=== PATIENT | female | born 1980 | race Two or more races ===

== ENCOUNTER 2017-12-14 19:26 | Inpatient (IN) | payer MEDICAID, OTHER ==
[~2017-12-14] VITALS: Ht 170.2 cm; Wt 75.2 kg
[2017-12-14] MEDS ORDERED: ACETAMINOPHEN 325 MG TAB PO ONE ×2 (20:03→20:45)
[2017-12-14 21:11] LABS: Urine Amorphous Crystal FEW /hpf (None Seen); Urine Bacteria NONE SEEN /hpf (None Seen); Urine Blood 1+ /uL (Negative); Urine Specific Gravity 1.006 (1.001-1.035); Urine WBC 7 /hpf (0 - 5)
[2017-12-14 21:26] LABS: Basophils # (auto) 0 uL; Basophils % (auto) 0.6 % (0.0-2.0); Eosinophils # (auto) 0 uL; Eosinophils % (auto) 0.2 % (0.0-7.0); Hemoglobin 13.1 g/dL (12.2-16.2); Lymphocytes # (auto) 1.4 uL; Lymphocytes % (auto) 19.7 % (10.0-50.0); Mean Corpuscular Hemoglobin 30.7 pg (28.0-32.0); Mean Corpuscular Hgb Conc. 34.4 g/dL (32.0-36.0); Mean Corpuscular Volume 89.3 fL (80.0-100.0); Monocytes # (auto) 0.6 uL; Monocytes % (auto) 9.1 % (0.0-12.0); Neutrophils # (auto) 4.9 uL; Neutrophils % (auto) 70.4 % (37.0-80.0); Platelet Count (auto) 210 10^3/uL (140-450); Red Blood Cells 4.26 10^6/uL (4.0-5.20); Red Cell Distribution Width 12.6 % (11.8-14.3)
[2017-12-14 21:47] LABS: BUN/Creatinine Ratio 9.2; Bilirubin, Total 0.5 mg/dL (0.2-1.0); Calcium 8.2 mg/dL (8.5-10.1); Magnesium 2.4 mg/dL (1.6-2.6); Potassium 3.5 mmol/L (3.5-5.1); Total Protein 7.9 g/dL (6.4-8.2)
[2017-12-14] MEDS ORDERED: SODIUM CHLORIDE 0.9% 1,000 ML IV ONE (22:15)
[2017-12-14] MEDS ORDERED: PIPERACILLIN-TAZOB 3.375GM 100 ML IV ONE (22:15)
[2017-12-14] MEDS ORDERED: LEVOFLOXACIN 750MG 150 ML IV ONE (22:30)
[2017-12-15] VITALS (8 sets, daily range): BP systolic 96–113; BP diastolic 55–73
[2017-12-15] MEDS ORDERED: HYDROmorphone HCL 2 MG/ML VL IV PRN (02:00)
[2017-12-15] MEDS ORDERED: ONDANSETRON HCL 4 MG/2 ML VIAL IV PRN (02:00)
[2017-12-15] MEDS ORDERED: HYDROcodone-ACET 5/325MG TAB PO PRN (02:00)
[2017-12-15] MEDS ORDERED: ALBUTEROL SULF 2.5 MG/0.5ML(0.5%) NEB SOLN NEB PRN (02:15)
[2017-12-15] MEDS: SODIUM CHLORIDE 0.9% 1,000 ML IV SCH ×4 (04:14→21:18)
[2017-12-15] MEDS: ACETAMINOPHEN 500 MG TAB PO PRN ×2 (06:25→14:03)
[2017-12-15] MEDS: PANTOPRAZOLE 40 MG/10 ML VIAL IV SCH (10:08)
[2017-12-15 13:14] LABS: Amylase 59 U/L (25-115); Lipase 228 U/L (73-393)
[2017-12-15] MEDS ORDERED: LEVOFLOXACIN 500MG 100 ML IV SCH (23:00)
[2017-12-16 05:16] VITALS: BP 103/60
[2017-12-16] MEDS: ACETAMINOPHEN 500 MG TAB PO PRN (05:56)
[2017-12-16 06:07] LABS: Basophils # (auto) 0 uL; Basophils % (auto) 0.4 % (0.0-2.0); Eosinophils # (auto) 0 uL; Eosinophils % (auto) 0.8 % (0.0-7.0); Hemoglobin 11.4 g/dL (12.2-16.2); Lymphocytes # (auto) 0.9 uL; Lymphocytes % (auto) 16.7 % (10.0-50.0); Mean Corpuscular Hemoglobin 30.9 pg (28.0-32.0); Mean Corpuscular Hgb Conc. 34.4 g/dL (32.0-36.0); Mean Corpuscular Volume 89.9 fL (80.0-100.0); Monocytes # (auto) 0.4 uL; Monocytes % (auto) 7.9 % (0.0-12.0); Neutrophils % (auto) 74.2 % (37.0-80.0); Platelet Count (auto) 193 10^3/uL (140-450); Red Blood Cells 3.67 10^6/uL (4.0-5.20); Red Cell Distribution Width 12.5 % (11.8-14.3); White Blood Cell 5.4 10^3/uL (4.4-10.8)
[2017-12-16 06:14] LABS: Calcium 7.6 mg/dL (8.5-10.1); Potassium 3.8 mmol/L (3.5-5.1)
[2017-12-16 06:21] LABS: BUN/Creatinine Ratio 8.5
[2017-12-16] MEDS: SODIUM CHLORIDE 0.9% 1,000 ML IV SCH ×2 (06:39→13:49)
[2017-12-16 09:00] VITALS: BP 105/62
[2017-12-16] MEDS: PANTOPRAZOLE 40 MG/10 ML VIAL IV SCH (09:58)
[2017-12-16 13:00] VITALS: BP 95/63
[2017-12-16] MEDS ORDERED: LEVOFLOXACIN 750MG 150 ML IV ONE (15:30)
[2017-12-16] MEDS ORDERED: guaiFENesin-DM 100/10mg/5ml SYR PO PRN (15:30)
[2017-12-16 22:00] VITALS: BP 101/65
[2017-12-17] MEDS: SODIUM CHLORIDE 0.9% 1,000 ML IV SCH ×2 (01:01→10:16)
[2017-12-17 04:43] VITALS: BP 103/67
[2017-12-17 06:39] LABS: Basophils # (auto) 0 uL; Basophils % (auto) 0.6 % (0.0-2.0); Eosinophils # (auto) 0.2 uL; Eosinophils % (auto) 3.8 % (0.0-7.0); Hematocrit 35.9 % (36.0-46.0); Hemoglobin 12.4 g/dL (12.2-16.2); Lymphocytes # (auto) 1.3 uL; Lymphocytes % (auto) 29.4 % (10.0-50.0); Mean Corpuscular Hemoglobin 30.8 pg (28.0-32.0); Mean Corpuscular Hgb Conc. 34.4 g/dL (32.0-36.0); Mean Corpuscular Volume 89.5 fL (80.0-100.0); Monocytes # (auto) 0.4 uL; Monocytes % (auto) 8.6 % (0.0-12.0); Neutrophils # (auto) 2.5 uL; Neutrophils % (auto) 57.6 % (37.0-80.0); Nucleated Red Blood Cells % 0.1 %; Platelet Count (auto) 258 10^3/uL (140-450); Red Blood Cells 4.02 10^6/uL (4.0-5.20); Red Cell Distribution Width 12.5 % (11.8-14.3); White Blood Cell 4.4 10^3/uL (4.4-10.8)
[2017-12-17 06:55] LABS: Calcium 8.2 mg/dL (8.5-10.1); Potassium 3.7 mmol/L (3.5-5.1)
[2017-12-17 06:59] LABS: BUN/Creatinine Ratio 8.5
[2017-12-17 08:39] VITALS: BP 103/67
[2017-12-17] MEDS ORDERED: LEVOFLOXACIN 750MG 150 ML IV SCH (10:00)
[2017-12-17] MEDS: PANTOPRAZOLE 40 MG/10 ML VIAL IV SCH (10:16)
[2017-12-17 13:03] VITALS: BP 95/53
[2017-12-17] MEDS ORDERED: LEVO750T2 PO (14:23)
[2017-12-17] MEDS ORDERED: SODIUM CHLORIDE 0.9% 1,000 ML IV SCH (14:30)
[2017-12-17 17:00] VITALS: BP 106/63
== END 2017-12-17 17:20 | disposition home or self-care (01) | DRG 720 ==
LOC: ER 19:26 → OVERFLOW 19:27 → WEST WING 12-15 03:45
PROVIDERS: ADMIT Nurse Practitioner Family; ATTEND Internal Medicine
DX: A41.9 Sepsis, unspecified organism (principal); J18.1 Lobar pneumonia, unspecified organism; N39.0 Urinary tract infection, site not specified; Z98.51 Tubal ligation status; M54.9 Dorsalgia, unspecified; Z88.0 Allergy status to penicillin
CPT/HCPCS: 36415; 36600; 71045; 71250; 80048; 80053; 81001; 82150; 82805; 83605; 83690; 83735; 85025; 86141; 87040; 87070; 87205; 94640; 96365; 96366; C9113; J1956; J2543

== ENCOUNTER 2020-06-21 07:31 | Inpatient (IN) | payer MEDICAID, OTHER ==
[~2020-06-21] VITALS: Ht 172.7 cm; Wt 80.4 kg
[~2020-06-21 07:31] MED LIST: LEVO750T8 PO
[2020-06-21] MEDS ORDERED: DOXYCYCLINE 100MG/250ML 250 ML IV ONE (08:15)
[2020-06-21] MEDS ORDERED: DexAMETHasone SOD PHOS 10MG/1ML VIAL INJ IV ONE (08:15)
[2020-06-21] MEDS ORDERED: ACETAMINOPHEN 325 MG TAB PO ONE (08:15)
[2020-06-21 09:47] LABS: Basophils # (auto) 0 10 ^3/uL (0-0.2); Basophils % (auto) 0.2 % (0.0-2.0); Eosinophils # (auto) 0 10 ^3/uL (0-0.8); Hematocrit 41.4 % (36.0-46.0); Lymphocytes # (auto) 0.9 10 ^3/uL (0.4-5.4); Lymphocytes % (auto) 15.8 % (10.0-50.0); Mean Corpuscular Hemoglobin 30.3 pg (28.0-32.0); Mean Corpuscular Hgb Conc. 33.8 g/dL (32.0-36.0); Mean Corpuscular Volume 89.7 fL (80.0-100.0); Monocytes # (auto) 0.3 10 ^3/uL (0-1.3); Monocytes % (auto) 5.5 % (0.0-12.0); Neutrophils # (auto) 4.5 10 ^3/uL (1.6-8.6); Neutrophils % (auto) 78.5 % (37.0-80.0); Nucleated Red Blood Cells % 0.1 %; Platelet Count (auto) 144 10^3/uL (140-450); Red Blood Cells 4.61 10^6/uL (4.0-5.20); Red Cell Distribution Width 12.8 % (11.8-14.3); White Blood Cell 5.7 10^3/uL (4.4-10.8)
[2020-06-21 10:13] LABS: Anion Gap 10 (5-15); Blood Urea Nitrogen 8 mg/dL (7-18); Calcium 7.8 mg/dL (8.5-10.1); Carbon Dioxide 22 mmol/L (21-32); Chloride 101 mmol/L (98-107); Glucose 157 mg/dL (74-106); Potassium 3.1 mmol/L (3.5-5.1); Sodium 133 mmol/L (136-145)
[2020-06-21 10:23] LABS: Alanine Aminotransferase 21 U/L (13-56); Alkaline Phosphatase 63 U/L (45-117); Aspartate Aminotransferase 20 U/L (15-37); BUN/Creatinine Ratio 10.5; Bilirubin, Total 0.4 mg/dL (0.2-1.0); CRP High Sensitivity 5.94 mg/dL (< 0.3); GFR African American 107 mL/min; GFR Non-African American 89 mL/min; Lactate Dehydrogenase 228 U/L (84-246); Total Protein 7.4 g/dL (6.4-8.2)
[2020-06-21 10:51] LABS: INR 1.07 (0.9-1.15); Partial Thromboplastin Time 29.1 sec (23.0-31.2)
[2020-06-21 17:37] LABS: Urine Bacteria NONE SEEN /hpf (None Seen); Urine Blood Negative /uL (Negative); Urine Mucus FEW (None Seen); Urine Specific Gravity 1.013 (1.001-1.035); Urine WBC 3 /hpf (0 - 5)
[2020-06-21] MEDS ORDERED: REMDESIVIR PER PHARMACY 0 ML IV SCH (18:00)
[2020-06-21] MEDS ORDERED: MORPHINE SULF INJ 2 MG/ML SYRINGE 1ML IV PRN ×2 (18:00)
[2020-06-21] MEDS ORDERED: POTASSIUM EFFERVESENT TAB 25 MEQ PO ONE (18:00)
[2020-06-21] MEDS ORDERED: NITROGLYCERIN 0.4 MG SL TAB SL PRN (18:00)
[2020-06-21] MEDS ORDERED: HYDROcodone-ACET 5/325MG TAB PO PRN (18:00)
[2020-06-21] MEDS ORDERED: ONDANSETRON HCL 4 MG/2 ML VIAL IV PRN (18:00)
[2020-06-21] MEDS ORDERED: ACETAMINOPHEN 500 MG TAB PO PRN (18:00)
[2020-06-21] MEDS ORDERED: BENZ100C97 PO (18:26)
[2020-06-21] MEDS ORDERED: PRED20TA2 PO (18:26)
[2020-06-21] MEDS: BUDESONIDE (INHALATION) 180 MCG IH IN SCH (21:58)
[2020-06-21] MEDS: ENOXAPARIN SOD 40 MG/0.4 ML SYRINGE SC SCH (22:31)
[2020-06-22 06:29] LABS: Basophils # (auto) 0 10 ^3/uL (0-0.2); Basophils % (auto) 0.1 % (0.0-2.0); Eosinophils # (auto) 0 10 ^3/uL (0-0.8); Hematocrit 39.3 % (36.0-46.0); Hemoglobin 13.4 g/dL (12.2-16.2); Lymphocytes # (auto) 1.3 10 ^3/uL (0.4-5.4); Lymphocytes % (auto) 16.5 % (10.0-50.0); Mean Corpuscular Hemoglobin 30.5 pg (28.0-32.0); Mean Corpuscular Hgb Conc. 34.1 g/dL (32.0-36.0); Mean Corpuscular Volume 89.3 fL (80.0-100.0); Monocytes # (auto) 0.4 10 ^3/uL (0-1.3); Neutrophils # (auto) 6.1 10 ^3/uL (1.6-8.6); Neutrophils % (auto) 78.4 % (37.0-80.0); Nucleated Red Blood Cells % 0.1 %; Platelet Count (auto) 153 10^3/uL (140-450); Red Blood Cells 4.39 10^6/uL (4.0-5.20); Red Cell Distribution Width 12.7 % (11.8-14.3); White Blood Cell 7.8 10^3/uL (4.4-10.8)
[2020-06-22 06:58] LABS: Albumin 2.7 g/dL (3.4-5.0); Potassium 3.8 mmol/L (3.5-5.1)
[2020-06-22 07:02] LABS: Bilirubin, Total 0.4 mg/dL (0.2-1.0)
[2020-06-22] MEDS: cefTRIAXone 1GM/50ML D5W 50 ML IV SCH (08:11)
[2020-06-22] MEDS: BUDESONIDE (INHALATION) 180 MCG IH IN SCH ×2 (09:50→19:29)
--- NOTE | 2020-06-22 09:50 | NUR ---
Respiratory note: PT SEEN AT THIS TIME. HR 120, RR 24, SPO2 94% ON 4L NC. NO MDI'S AT BEDSIDE, STILL PENDING RESULTS.
[2020-06-22] MEDS: ASCORBIC ACID 1,000 MG TAB PO SCH (10:00)
[2020-06-22] MEDS: ZINC SULFATE 220mg CAP or TAB PO SCH (10:00)
[2020-06-22] MEDS: CHOLECALCIFEROL (VITD3) 2,000 UNIT CAP PO SCH (10:00)
[2020-06-22] MEDS: ENOXAPARIN SOD 40 MG/0.4 ML SYRINGE SC SCH (10:00)
[2020-06-22] MEDS: AZITHROMYCIN 500MG/ 250ML 250 ML IV SCH (10:00)
[2020-06-22] MEDS: FAMOTIDINE 20 MG TAB PO SCH (10:00)
[2020-06-22] MEDS: DexAMETHasone SOD PHOS 10MG/1ML VIAL INJ IV SCH (10:12)
[2020-06-22] MEDS ORDERED: ENOXAPARIN SOD 30 MG/0.3 ML SYRINGE SC ONE (14:15)
[2020-06-22] MEDS ORDERED: REMDESIVIR 200 MG in NS 210ml LOADING DOSE ADULT IV ONE (15:00)
[2020-06-22] MEDS: ALBUTEROL SULF HFA 90MCG INH 200DOSE IN PRN ×2 (15:38→21:03)
--- NOTE | 2020-06-22 18:45 | NUR ---
Telemetry admit from ER JENNIE WINTERS admitted to Telemetry unit after SBAR received. Patient oriented to DALILA ROSA RN primary RN, unit, room, bed, and unit policies regarding patient care and visiting hours. Patient now on continuous telemetry monitoring, tele box # [id number] and telemetry reading on arrival to unit is SR. Patient placed on bedside oxygen, weighed by bedscale and encouraged to call if they need something. All questions and concerns addressed, patient verbalized understanding.
[2020-06-22] MEDS: ENOXAPARIN SOD 80 MG/0.8ML SYRINGE SC SCH (21:36)
[2020-06-22 22:00] VITALS: BP 105/64
[2020-06-23] VITALS (7 sets, daily range): BP systolic 88–113; BP diastolic 52–65
--- NOTE | 2020-06-23 00:22 | NUR ---
Called Blood bank to follow up on order for convalescent plasma. They stated that the plasma has not yet arrived and that they will call when it is available.
--- NOTE | 2020-06-23 06:30 | NUR ---
Rapid Influenza swab obtained and sent to lab
[2020-06-23] MEDS: ALBUTEROL SULF HFA 90MCG INH 200DOSE IN PRN ×2 (07:00→21:30)
[2020-06-23] MEDS: BUDESONIDE (INHALATION) 180 MCG IH IN SCH ×2 (07:00→21:30)
--- NOTE | 2020-06-23 07:00 | NUR ---
Respiratory note: RECEIVED PT ON 2L NC. NO RESPIRATORY DISTRESS. WILL CONTINUE TO MONITOR.
--- NOTE | 2020-06-23 07:30 | NUR ---
Opening Shift Note Assumed care of patient, awake and alert. No S/S of distress/SOB or pain. Instructed on POC and to call for assist PRN, will continue to monitor for changes Q1hr and PRN. Fall precautions in place per safety protocol.
[2020-06-23] MEDS: cefTRIAXone 1GM/50ML D5W 50 ML IV SCH (09:40)
--- NOTE | 2020-06-23 09:40 | NUR ---
O2 Patient's oxygen titrated to 2L NC. No sob, distress, or pain noted at this time.
[2020-06-23] MEDS: ASCORBIC ACID 1,000 MG TAB PO SCH (09:41)
[2020-06-23] MEDS: ZINC SULFATE 220mg CAP or TAB PO SCH (09:41)
[2020-06-23] MEDS: FAMOTIDINE 20 MG TAB PO SCH (09:41)
[2020-06-23] MEDS: ENOXAPARIN SOD 80 MG/0.8ML SYRINGE SC SCH ×2 (09:41→22:00)
[2020-06-23] MEDS: DexAMETHasone SOD PHOS 10MG/1ML VIAL INJ IV SCH (09:41)
[2020-06-23] MEDS: CHOLECALCIFEROL (VITD3) 2,000 UNIT CAP PO SCH (09:41)
[2020-06-23] MEDS: AZITHROMYCIN 500MG/ 250ML 250 ML IV SCH (10:00)
[2020-06-23] MEDS: REMDESIVIR 100 MG in SODIUM CHL 0.9% 250 ML IV SCH (15:58)
--- NOTE | 2020-06-23 16:15 | NUR ---
Remdesivir Pre-infusion BP:111/71 HR:74 15Min Post-Infusion BP:105/58 HR:77
[2020-06-23] MEDS: Ensure Enlive Strawberry 8oz Bottle PO SCH (18:00)
[2020-06-24] VITALS (7 sets, daily range): BP systolic 93–108; BP diastolic 56–67
--- NOTE | 2020-06-24 02:55 | NUR ---
Rounds Patient sleeping on right side. No sob, distress, or pain noted at this time. Patient on 2L NC. Will endorse care to Day Shift ANITA Palmer.
--- NOTE | 2020-06-24 03:00 | NUR ---
Opening Shift Note Assumed care of patient, awake and alert. No S/S of distress/SOB or pain. Instructed on POC and to call for assist PRN, will continue to monitor for changes Q1hr and PRN
[2020-06-24] MEDS: BUDESONIDE (INHALATION) 180 MCG IH IN SCH ×2 (06:18→20:28)
[2020-06-24] MEDS: ALBUTEROL SULF HFA 90MCG INH 200DOSE IN PRN ×2 (06:18→20:29)
--- NOTE | 2020-06-24 06:18 | NUR ---
Respiratory note: RECEIVED PT ON 2L NC. NO DISTRESS WILL CONT. TO MONITOR.
[2020-06-24 06:22] LABS: Albumin 2.6 g/dL (3.4-5.0); Calcium 8.6 mg/dL (8.5-10.1); Potassium 3.9 mmol/L (3.5-5.1)
[2020-06-24 06:25] LABS: BUN/Creatinine Ratio 27.1; Bilirubin, Total 0.3 mg/dL (0.2-1.0); Total Protein 6.8 g/dL (6.4-8.2)
[2020-06-24] MEDS: Ensure Enlive Strawberry 8oz Bottle PO SCH ×2 (08:02→17:48)
[2020-06-24] MEDS: ZINC SULFATE 220mg CAP or TAB PO SCH (08:45)
[2020-06-24] MEDS: AZITHROMYCIN 500MG/ 250ML 250 ML IV SCH (08:45)
[2020-06-24] MEDS: cefTRIAXone 1GM/50ML D5W 50 ML IV SCH (08:45)
[2020-06-24] MEDS: FAMOTIDINE 20 MG TAB PO SCH (08:46)
[2020-06-24] MEDS: ENOXAPARIN SOD 80 MG/0.8ML SYRINGE SC SCH ×2 (08:46→22:04)
[2020-06-24] MEDS: CHOLECALCIFEROL (VITD3) 2,000 UNIT CAP PO SCH (08:46)
[2020-06-24] MEDS: ASCORBIC ACID 1,000 MG TAB PO SCH (08:46)
[2020-06-24] MEDS: DexAMETHasone SOD PHOS 10MG/1ML VIAL INJ IV SCH (08:47)
--- NOTE | 2020-06-24 11:39 | NUR ---
IV insertion IV access obtained, via clean sterile technique by inserting 20 gauge catheter at LEFT UPPER ARM after 1 attempt. IV secured properly. No trauma to site. Patient tolerated well.
[2020-06-24] MEDS: REMDESIVIR 100 MG in SODIUM CHL 0.9% 250 ML IV SCH (15:42)
--- NOTE | 2020-06-24 16:49 | NUR ---
REMDESIVIR VITAL SIGNS PRE-INFUSION BP90/63 HR 62 15 MINUTE: BP 95/56 HR 59 POST INFUSION BP 98/56 HR 56
--- NOTE | 2020-06-24 19:13 | NUR ---
Opening Shift Note Assumed care of patient. Patient is awake and alert, oriented X 4. No S/S of respiratory distress noted. Pt denies pain at this time. Bed in lowest locked position, side rails up X 2, call light is within reach. Pt instructed on POC and to call for assistance PRN. Will continue to monitor for changes Q1hr and PRN.
[2020-06-25 05:00] VITALS: BP 102/63
[2020-06-25 06:38] LABS: Albumin 2.6 g/dL (3.4-5.0); Calcium 8.6 mg/dL (8.5-10.1); Potassium 3.6 mmol/L (3.5-5.1)
[2020-06-25 06:42] LABS: Bilirubin, Total 0.3 mg/dL (0.2-1.0); Total Protein 7.1 g/dL (6.4-8.2)
[2020-06-25] MEDS: BUDESONIDE (INHALATION) 180 MCG IH IN SCH (06:58)
[2020-06-25] MEDS: ALBUTEROL SULF HFA 90MCG INH 200DOSE IN PRN (06:58)
--- NOTE | 2020-06-25 07:30 | NUR ---
Opening Shift Note RECEIVED REPORT FROM NOC RN. Assumed care of patient, awake and alert. No S/S of distress/SOB or pain. BED IN LOWEST, LOCKED POSITION WITH SIDERAILS UP x2 AND CALL LIGHT WITHIN REACH. Instructed on POC and to call for assist PRN, will continue to monitor for changes Q1hr and PRN.
[2020-06-25] MEDS: Ensure Enlive Strawberry 8oz Bottle PO SCH (09:21)
[2020-06-25] MEDS: cefTRIAXone 1GM/50ML D5W 50 ML IV SCH (09:21)
[2020-06-25] MEDS ORDERED: METH4PAK PO (10:36)
[2020-06-25] MEDS ORDERED: ZINC220T6 PO (10:36)
[2020-06-25] MEDS ORDERED: ASCO500T11 PO (10:36)
[2020-06-25] MEDS ORDERED: ALBUAER3 IN (10:36)
[2020-06-25] MEDS ORDERED: CHOL20007 PO (10:36)
[2020-06-25] MEDS ORDERED: PANT40TA2 PO (10:36)
[2020-06-25] MEDS: ASCORBIC ACID 1,000 MG TAB PO SCH (10:56)
[2020-06-25] MEDS: AZITHROMYCIN 500MG/ 250ML 250 ML IV SCH (10:56)
[2020-06-25] MEDS: FAMOTIDINE 20 MG TAB PO SCH (10:56)
[2020-06-25] MEDS: DexAMETHasone SOD PHOS 10MG/1ML VIAL INJ IV SCH (10:56)
[2020-06-25] MEDS: ZINC SULFATE 220mg CAP or TAB PO SCH (10:56)
[2020-06-25] MEDS: CHOLECALCIFEROL (VITD3) 2,000 UNIT CAP PO SCH (10:57)
[2020-06-25] MEDS: ENOXAPARIN SOD 80 MG/0.8ML SYRINGE SC SCH (10:57)
[2020-06-25 11:41] VITALS: BP 100/70
[2020-06-25 13:00] VITALS: BP 97/61
--- NOTE | 2020-06-25 13:16 | NUR ---
Discharge instructions given as ordered. Encourage to follow up with PMD as instructed. All questions and concerns addressed. Patient verbalized understanding. Medication reconciliation form completed and copy given to patient. IV removed with catheter intact, pressure dressing applied. Telemetry unit returned to ICU. Patient taken to vehicle via wheelchair with all personal belongings, accompanied by staff. No distress noted at time of departure.
== END 2020-06-25 13:15 | disposition home or self-care (01) | DRG 177 ==
LOC: ER 07:31 → EDUNIT# 07:31 → EDBD 07:31 → TELE 17:55 → TELE-EAST 06-22 18:20
PROVIDERS: ADMIT Nurse Practitioner Acute Care; ATTEND Internal Medicine
PROC: XW13325 Transfusion of Convalescent Plasma (Nonautologous) into Peripheral Vein, Percutaneous Approach, New Technology Group 5 (ICD-10-PCS; principal; 2020-06-21)
PROC: XW13325 Transfusion of Convalescent Plasma (Nonautologous) into Peripheral Vein, Percutaneous Approach, New Technology Group 5 (ICD-10-PCS; 2020-06-21)
DX: U07.1 COVID-19 (principal); J12.89 Other viral pneumonia; J96.01 Acute respiratory failure with hypoxia; E44.1 Mild protein-calorie malnutrition; E87.1 Hypo-osmolality and hyponatremia; M54.5 Low back pain; I95.9 Hypotension, unspecified; E87.6 Hypokalemia; Z90.710 Acquired absence of both cervix and uterus; Z85.43 Personal history of malignant neoplasm of ovary; Z88.0 Allergy status to penicillin
CPT/HCPCS: 36415; 71045; 80053; 81001; 82728; 83605; 83615; 83735; 84484; 85025; 85379; 85610; 85730; 86141; 86850; 86900; 86901; 87040; 87070; 87205; 87426; 87804; 94640; 99291; G0378; J0696; J1100; J3490